=== PATIENT | female | born 1985 | race Caucasian/White ===

== ENCOUNTER 2020-08-16 15:04 | Emergency (ER) | payer BC, SELFPAY ==
--- NOTE | ~2020-08-16 | CT_ITS ---
EXAMINATION: CT abdomen pelvis w con DATE: 08/16/2020 16:16 INDICATION: Right lower quadrant abdominal pain. TECHNIQUE: Computed tomography (CT) of the abdomen and pelvis was performed with 100 mL Omnipaque 350 intravenous contrast. Automated exposure control and iterative reconstruction technique were employe d. The dose-length product was 247.02 mGy-cm. COMPARISON: None. FINDINGS: The visualized portions of the lung bases demonstrate minimal atelectasis on the right. No pleural effusion. The heart size is normal. No pericardial effusion. The liver, gallbladder, spleen, pancreas, adrenal glands, and kidneys are normal. There are no dilated loops of bowel. There is fat s tranding around a diverticulum of the cecum, consistent with diverticulitis. The appendix is normal. The periuterine veins and left ovarian vein are enlarged, consistent with pelvic venous insufficiency . There are no pathologically enlarged lymph nodes. There is no free intraperitoneal fluid. There is mild thoracic spondylosis. IMPRESSION: 1. Diverticulitis of the cecum. No perforation or abscess. Reviewed, dictated and finalized at location A. [employer]GER
[2020-08-16 15:11] VITALS: BP 151/87; PULSE 114; RESP 20; TEMP 36.6; O2SAT 100
[2020-08-16 15:33] LABS: Basophils Absolute Auto 0.1 K/mm3 (0.0-0.1); Basophils Percent Auto 0.5 % (0.2-1.2); Eosinophils Absolute Auto 0.2 K/mm3 (0-0.3); Eosinophils Percent Auto 2.2 % (0-4.4); Hematocrit 38.8 % (37.0-47.0); Hemoglobin 13.5 g/dL (12.0-15.0); Immature Granulocyte Absolute 0.06 K/mm3 (0.00-0.031); Immature Granulocyte Percent A 0.6 % (0-0.5); Lymphocytes Percent Auto 18.7 % (18.3-44.2); Mean Corpuscular HGB Conc 34.8 g/dl (32-36); Mean Corpuscular Hemoglobin 32.8 pg (26-34); Mean Corpuscular Volume 94.2 fl (80-100); Mean Platelet Volume 9.6 fl (7.4-10.4); Monocytes Absolute Auto 0.7 K/mm3 (0.1-0.6); Neutrophils Absolute Auto 6.8 K/mm3 (1.3-6.7); Platelet Count Result 289 k/mm3 (150-375); Red Blood Count 4.12 M/mm3 (4.2-5.4); Red Cell Distribution Width 12.8 % (11.5-14.5); White Blood Count 9.6 K/mm3 (4.5-10.0)
--- NOTE | 2020-08-16 15:34 | ED.GENADULT ---
HPI - General Adult General Chief complaint: Abdominal Pain <Michael Ruffin PA-C - Last Filed: 08/16/20 17:33> Stated complaint: abd pain <Michael Ruffin PA-C - Last Filed: 08/16/20 17:33> Time Seen by Provider: 08/16/20 15:11 <Michael Ruffin PA-C - Last Filed: 08/16/20 17:33> Source: patient <Michael Ruffin PA-C - Last Filed: 08/16/20 17:33> Mode of arrival: ambulatory <MIKEY Goodwin Last Filed: 08/16/20 17:33> Limitations: no limitations <Michael Ruffin PA-C - Last Filed: 08/16/20 17:33> History of Present Illness HPI narrative: Patient is a 34-year-old female who presents to emergency department for evaluation of abdominal pain that was periumbilical now located to the right lower quadrant is a sharp stabbing pain worse with activity and movement patient denies similar occurrence in the past presents in an uncomfortable state but is in no distress patient has not taken anything other than [id number] medications for symptoms. Neuro <Michael Ruffin PA-C - Last Filed: 08/16/20 17:33> Related Data Allergies/adverse reactions: Allergies Allergy/AdvReac Type Severity Reaction Status Date / Time No Known Allergies Allergy Verified 08/16/20 15:14 <Michael Ruffin PA-C - Last Filed: 08/16/20 17:33> Review of Systems Review of Systems: All systems reviewed & are unremarkable except as noted in HPI and below <Michael Ruffin PA-C - Last Filed: 08/16/20 17:33> [facility] Social History Social History: Social History (Updated 08/16/20 @ 15:37 by Michael Ruffin PA-C) Smoking status: Current every day smoker Alcohol intake: current Gender identity (if verbalized by the patient): Female <MIKEY Goodwin Last Filed: 08/16/20 17:33> Exam Narrative: Exam Narrative: GENERAL: Well-appearing, well-nourished, and in no acute distress. HEAD: Normocephalic, atraumatic. EYES: PERRLA and EOMI. ENT: Nares clear, no rhinorrhea or epistaxis. Mucous membranes moist. CHEST: Clear to auscultation. No respiratory distress. No wheezes rales or rhonchi HEART: Regular rate and rhythm. No murmur heard. Normal peripheral pulses. ABDOMEN: Soft, focal right lower quadrant tenderness to palpation with voluntary guarding, nondistended, normal active bowel sounds. EXTREMITIES: Normal range of motion. No edema. SKIN: Warm, dry, no rash. NEURO: No focal deficits. Alert and oriented x3. PSYCH: Normal mood and affect. <Michael Ruffin PA-C - Last Filed: 08/16/20 17:33> Course Course Emergency Course: Patient in the room at this time aware of case findings treatment plan and diagnosis Patient feeling better with interventions will be discharged home given GI follow-up and agreeing to follow with primary care was given fluids and pain medicine <Michael Ruffin PA-C - Last Filed: 08/16/20 17:33> Vital Signs Vital signs: Vital Signs Temperature 36.6 C 08/16/20 15:11 Pulse Rate 114 H 08/16/20 15:11 Respiratory Rate 20 08/16/20 15:11 Blood Pressure 151/87 H 08/16/20 15:11 Pulse Oximetry 100 08/16/20 15:11 Temperature 36.6 C 08/16/20 15:11 Pulse Rate 87 08/16/20 16:49 Respiratory Rate 14 08/16/20 16:49 Blood Pressure 117/75 08/16/20 16:49 Pulse Oximetry 98 08/16/20 16:49 <MIKEY Goodwin Last Filed: 08/16/20 17:33> Vital Signs Temperature 36.6 C 08/16/20 15:11 Pulse Rate 114 H 08/16/20 15:11 Respiratory Rate 20 08/16/20 15:11 Blood Pressure 151/87 H 08/16/20 15:11 Pulse Oximetry 100 08/16/20 15:11 Temperature 36.6 C 08/16/20 15:11 Pulse Rate 87 08/16/20 16:49 Respiratory Rate 14 08/16/20 16:49 Blood Pressure 117/75 08/16/20 16:49 Pulse Oximetry 98 08/16/20 16:49 <Yi Brown MD - Last Filed: 08/16/20 17:36> Medical Decision Making MDM Narrative Medical decision making narrative: Patient found to have diverticulitis no othe
[2020-08-16 15:37] LABS: Add Urine Microscopic? YES; Appearance Urine Clear (Clear); Bacteria Urine Trace /hpf; Bilirubin Urine Negative (Negative); Blood Urine 1+ (Negative); Color Urine Yellow (Yellow); Glucose Urine UA Negative (Negative); Ketones Urine Negative (Negative); Leukocyte Esterase Ur Trace LEU/UL (Negative); Mucus Urine Rare /lpf; Nitrate Urine Negative (Negative); Protein Urine 1+ mg/dL (Negative); Specific Grav Ur 1.017 (1.001-1.035); Squamous Epithelial Cell Urine Few /hpf (Few); Urobilinogen Urine Negative mg/dL (<2.0); WBC Urine 0-3 /hpf
[2020-08-16] MEDS: ONDANSETRON INJ 4 MG/2 ML VIAL IV PUSH (15:39)
[2020-08-16] MEDS: FAMOTIDINE 20 MG/2 ML VIAL IV PUSH (15:39)
[2020-08-16] MEDS: SODIUM CHLORIDE 0.9% IV 1,000 ML 999 ML IV CONT (15:39)
[2020-08-16 15:54] LABS: Alanine Aminotransferase 13 U/L (4-35); Albumin Level 4.3 g/dL (3.5-5.1); Alkaline Phosphatase 55 U/L (38-126); Anion Gap 8 mmol/L (8-16); Aspartate Amino Transferase 25 U/L (14-36); Bilirubin,Total 0.5 mg/dL (0.2-1.3); Blood Urea Nitrogen 8 mg/dL (7-17); Carbon Dioxide 26 mmol/L (22-30); Chloride 106 mmol/L (98-107); Estimated CRCL calculation 83 ml/min; Estimated Glomerular Filt Rate > 60; Glucose 107 mg/dL (65-105); Lipase 43 U/L (23-300); Potassium 3.7 mmol/L (3.4-5.0); Sodium 140 mmol/L (137-145)
[2020-08-16] MEDS: IBUPROFEN IV 800 MG/200 ML 800 MG/200 ML BAG 400 MG IVPB (16:48)
[2020-08-16 16:49] VITALS: BP 117/75; PULSE 87; RESP 14; O2SAT 98
[2020-08-16 17:54] VITALS: BP 123/83; PULSE 97; RESP 15; O2SAT 97
== END 2020-08-16 17:57 | disposition home or self-care (01) ==
PROVIDERS: Emergency Provider Emergency Medicine; PCP Emergency Medicine
DX: K57.32 Diverticulitis of large intestine without perforation or abscess without bleeding (principal); F17.200 Nicotine dependence, unspecified, uncomplicated
CPT/HCPCS: 36415; 74177; 80053; 81001; 81025; 83690; 85025; 96365; 96367; 96375; 99284; J0131; J1741; J2405; J7030; Q9967

== ENCOUNTER 2020-09-03 07:35 | Outpatient (CLI) | payer BC, SELFPAY ==
--- NOTE | ~2020-09-03 | US_ITS ---
EXAMINATION: US right upper quadrant DATE: 09/03/2020 08:31 INDICATION: Cholelithiasis. Nausea and abdominal pain. TECHNIQUE: Multiple grayscale and Doppler ultrasound images of the abdomen were obtained. COMPARISON: CT abdomen and pelvis dated 08/16/2020 FINDINGS: The pancreatic head and body are normal in appearance. The pancreatic tail is not visualized. Liver has normal echogenicity and contour, with a smooth surface. No liver lesion identified. No intrahepat ic biliary duct dilation suspected. Portal venous flow was seen in the hepatopetal, normal direction and has normal Doppler waveform. The gallbladder is normal in appearance. There is no cholelithiasis . The common bile duct measures 4 mm, which is normal. Sonographic Moraes sign was reported as negati ve by the commissioner conservation of resources. Visualized proximal inferior vena cava is normal. Visualized portion of the ri ght kidney demonstrates normal echogenicity and contour with no hydronephrosis. IMPRESSION: 1. Normal right upper quadrant ultrasound. No evident cholelithiasis. Reviewed, dictated and finalized at location A. E CLEANER
== END 2020-09-03 07:36 | disposition home or self-care (01) ==
PROVIDERS: PCP Emergency Medicine; Visit Provider Emergency Medicine
DX: K80.80 Other cholelithiasis without obstruction (principal)
CPT/HCPCS: 76705